=== PATIENT | female | born 1955 | race Caucasian/White ===

== ENCOUNTER → 2016-06-21 | Outpatient (CLI) | payer BC ==
[~2016-06-21] MED LIST: ATOR40TA2 PO; CHOL2000 PO; CYAN1LOZ PO; INDA1.25 PO; LSNP10T PO; MELO7.5T PO; OMEG500C3; SPIR50TA29 PO; [UNRECOGNIZED DRUG - CODE]; [UNRECOGNIZED DRUG - CODE]
--- NOTE | 2016-06-22 18:47 | Diagnostic Imaging Report ---
DIG JAGJIT BILAT SCREEN W CAD Comparison: None available. Baseline examination. Indication: Screening mammography. Technique: Digital screening mammography was obtained with a computer-aided detection (CAD) system. Findings: There are scattered fibroglandular densities. No suspicious dominant mass, microcalcifications or architectural distortion that would suggest malignancy. There are a few scattered benign calcifications in each breast. Impression: No mammographic evidence of malignancy. A followup screening mammogram in 12 months is recommended. ACR BI-RADS Category 2: Benign findings. Result letter will be mailed to the patient. Note: At least 10% of breast cancer is not imaged by mammography. Dictated by: Dictated on workstation # [id number]
== END ==
LOC: RAD 08:34
PROVIDERS: ATTEND Family Medicine
DX: Z12.31 Encounter for screening mammogram for malignant neoplasm of breast (principal)